=== PATIENT | male | born 1985 | race Caucasian/White ===

== ENCOUNTER 2023-05-25 03:10 | Emergency (ER) | payer SELFPAY ==
[2023-05-25] MEDS ORDERED: Sodium Chloride 0.9% 1,000 ML IV ONE (03:13)
[2023-05-25] MEDS ORDERED: Sodium Chloride 0.9% 2.5 ML Syringe FLUSH PRN (03:13)
[2023-05-25] MEDS ORDERED: Sodium Chloride 0.9% 10 ML Syringe FLUSH PRN (03:13)
[2023-05-25 03:18] LABS: BASOPHILS PERCENT AUTO 0.7 % (0.0-1.5); EOSINOPHILS ABSOLUTE AUTO 0.1 K/uL (0.0-0.7); EOSINOPHILS PERCENT AUTO 1.8 % (0.0-7.0); HEMATOCRIT 47.8 % (38.0-50.0); HEMOGLOBIN 16.4 g/dL (13.0-17.0); LYMPHOCYTES ABSOLUTE AUTO 2.2 K/uL (0.6-2.4); LYMPHOCYTES PERCENT AUTO 35.8 % (16.0-40.0); MEAN CORPUSCULAR HGB CONC 34.3 g/dL (31.0-37.0); MEAN CORPUSCULAR VOLUME 90.4 fL (80.0-98.0); MONOCYTES ABSOLUTE AUTO 0.4 K/uL (0.0-0.8); MONOCYTES PERCENT AUTO 7.2 % (0.0-15.0); NEUTROPHILS ABSOLUTE AUTO 3.4 K/uL (1.4-5.7); NEUTROPHILS PERCENT AUTO 54.5 % (48.0-80.0); NRBC ABSOLUTE 0 K/uL; PLATELET COUNT,PLT 171 K/uL (150-400); RED BLOOD CELL COUNT 5.29 M/uL (4.50-5.90); WHITE BLOOD CELL COUNT,WBC 6.14 K/uL (4.0-11.0)
[2023-05-25 04:02] LABS: A/G RATIO 1.4 (0.9-1.6); ALBUMIN 3.6 g/dL (3.4-5.0); BILIRUBIN TOTAL 0.5 mg/dL (0.2-1.0); CALCIUM 8.3 mg/dL (8.5-10.1); CARBON DIOXIDE,CO2 30.5 mmol/L (21.0-32.0); CREATININE 1.1 mg/dL (0.8-1.3); EST CRCL DRUG DOSING (CG) 116.56 mL/min; MAGNESIUM 1.9 mg/dL (1.8-2.4); POTASSIUM,K 4.3 mmol/L (3.5-5.1); PROTEIN TOTAL,TP 6.2 g/dL (6.4-8.2)
== END 2023-05-25 04:30 | disposition home or self-care (01) ==
LOC: MW.ED 03:10
DX: R56.9 Unspecified convulsions (principal)
CPT/HCPCS: 36415; 80053; 82550; 83735; 84484; 85025; 93005; 96361; 96365; 99285; J1953; J3490; J7030; J7060; 93010; 99284